=== PATIENT | male | born 1950 ===

== ENCOUNTER 2017-02-04 14:46 | Emergency (ER) | payer OTHER, MEDICARE ==
[2017-02-04 14:46] VITALS: BMI 29.4
[2017-02-04 14:58] VITALS: BP 135/76; PULSE 93; RESP 18; TEMP 97.9; O2SAT 99
--- NOTE | 2017-02-04 15:48 | ED PDOC ---
HPI: Headache Time Seen by Provider: 02/04/17 15:05 Chief Complaint (Nursing): Headache Chief Complaint (Provider): Headache History Per: Patient History/Exam Limitations: no limitations Onset/Duration Of Symptoms: Days Current Symptoms Are (Timing): Still Present Severity: Mild Quality: Pressure, "Pain" Preceeding Symptoms: None Additional Complaint(s): Patient is a 66 year old male with a history of a stroke 10 days ago, started on blood thinner, presents to ED for 5-6 days of mild pressure like headache and dizziness that began today. Patient denies vision changes, extremity numbness or weakness. States his eyes " feel funny" but denies pain. Patient denies chest pain, nausea, vomiting, neck pain or palpations. PMD: : appointment scheduled for tomorrow Neurology: Dr. Chávez NIHSS Stroke Scale - Date/Time Evaluation Performed Date Performed: 02/04/17 Time Performed: 15:20 When Was NIHSS Performed: Baseline - How Severe is the Stroke Level of Consciousness: 0=Alert LOC to Questions: 0=Both comments correct LOC to commands: 0=Obeys both correctly Best Gaze: 0=Normal Visual: 0=No visual loss Facial: 0=Normal Motor Arm - Left: 0=No drift Motor Arm - Right: 0=No drift Motor Leg - Left: 0=No drift Motor Leg - Right: 0=No drift Limb Ataxia: 0=Absent Sensory: 0=Normal Best Language: 0=No aphasia Dysarthia: 0=Normal articulation Extinction & Inattention (Neglect): 0=Normal, no object Score: 0 Past Medical History Reviewed: Historical Data, Nursing Documentation, Vital Signs Vital Signs: Last Vital Signs Temp 97.9 F 02/04/17 14:55 Pulse 93 H 02/04/17 14:55 Resp 18 02/04/17 14:55 BP 135/76 02/04/17 14:55 Pulse Ox 99 02/04/17 14:55 - Medical History PMH: Arthritis (per old chart, pt denies), Diabetes, HTN, Hypercholesterolemia, TIA - Surgical History Surgical History: Denies: Endoscopy Other surgeries: Knee surgery - Family History Family History: States: Unknown Family Hx - Living Arrangements Living Arrangements: With Family - Immunization History Hx Tetanus Toxoid Vaccination: No Hx Influenza Vaccination: No Hx Pneumococcal Vaccination: No - Home Medications Home Medications: Ambulatory Orders Medication Instructions Recorded Ergocalciferol (Vitamin D2) 50,000 unit PO QWK 01/23/17 [Vitamin D2] Naproxen [Naprosyn Tab] 1 tab PO BID 01/23/17 Clopidogrel [Plavix] 75 mg PO DAILY #30 tab 01/24/17 Empagliflozin/Linagliptin 1 tab PO DAILY #30 tablet 01/24/17 [Glyxambi 10 mg-5 mg Tablet] Finasteride [Proscar] 5 mg PO DAILY #30 tab 01/24/17 Losartan/Hydrochlorothiazide 1 tab PO DAILY #30 tablet 01/24/17 [Losartan-Hctz 50-12.5 mg Tab] Tamsulosin [Flomax] 0.4 mg PO DAILY #30 cap 01/24/17 metFORMIN [glucOPHAGE] 500 mg PO DAILY #30 tab 01/24/17 - Allergies Allergies/Adverse Reactions: Allergies Allergy/AdvReac Type Severity Reaction Status Date / Time No Known Allergies Allergy Verified 04/14/16 20:01 Review of Systems ROS Statement: Except As Marked, All Systems Reviewed And Found Negative Constitutional: Negative for: Fever, Chills, Weakness Eyes: Negative for: Vision Change Cardiovascular: Negative for: Chest Pain, Palpitations Respiratory: Negative for: Cough, Shortness of Breath Gastrointestinal: Negative for: Nausea, Vomiting, Abdominal Pain Musculoskeletal: Negative for: Neck Pain, Back Pain Skin: Negative for: Rash Neurological: Positive for: Headache, Dizziness. Negative for: Weakness, Numbness Physical Exam - Reviewed Nursing Documentation Reviewed: Yes Vital Signs Reviewed: Yes - Physical Exam Appears: Positive for: Non-toxic, No Acute Distress Skin: Positive for: Normal Color, Warm Eye Exam: Positive for: Normal appearance, EOMI, PERRL. Negative for: Nystagmus Neck: Positive for: Normal, Painless ROM, Supple Cardiovascular/Chest: Positive for: Regular Rate, Rhythm. Negative for: Murmur Respiratory: Positive for: Normal Breath Sounds. Negative for: Respiratory Distress Gastrointestinal/Abdominal: Positive for: Normal Exam Back: Positive for: Normal Inspection Extremity: Positive for: Normal ROM. 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 Negative for: Motor/Sensory Deficits, Aphasia, Facial Droop - Laboratory Results Result Diagrams: 02/04/17 16:15 03/23/17 16:15 - ECG O2 Sat by Pulse Oximetry: 99 (RA) Pulse Ox Interpretation: Normal Medical Decision Making Medical Decision Making: Time: 1530 Initial impression: Headache with dizziness r/o CVA Initial plan: -- CT-head -- EKG -- CMP -- Troponin -- CBC -- CXR -- Urine culture -- U/A cxr no infiltrate labs reviewed slight elevation in wbc 16:53 CT head FINDINGS: HEMORRHAGE: No intracranial hemorrhage. BRAIN: No mass effect or edema. No atrophy or chronic microvascular ischemic changes. VENTRICLES: Unremarkable. No hydrocephalus. CALVARIUM: Unremarkable. PARANASAL SINUSES: Unremarkable as visualized. No significant inflammatory changes. MASTOID AIR CELLS: Unremarkable as visualized. No inflammatory changes. OTHER FINDINGS: None. IMPRESSION: No intracranial mass, hemorrhage or evidence of acute infarct. Dr. Chávez from neurology consulted and discussed results and recommends aggrenox. no new focal neurological finding on exam, no tpa needed. pt is refusing MRI as states his symptoms have resolved now. Dr. Rubio accepted pt. Dr. Chávez saw pt at bedside and recommended discharge and outpt follow up Scribe Attestation: Documented by Robyn Cook acting as a scribe for Ariel Calix MD MD Scribe Attestation: All medical record entries made by the Scribe were at my direction and personally dictated by me. I have reviewed the chart and agree that the record accurately reflects my personal performance of the history, physical exam, medical decision making, and the department course for this patient. I have also personally directed, reviewed, and agree with the discharge instructions and disposition. Disposition - Clinical Impression Clinical Impression: Headache - Patient ED Disposition Is Patient to be Admitted: No Counseled Patient/Family Regarding: Studies Performed, Diagnosis, Need For Followup - Disposition Disposition: Routine/Home Disposition Time: 17:45 Condition: GOOD rTPA Inclusion/Exclusion - Refusal of Treatment Patient Refused Treatment: No - Inclusion Criteria for Altepase Patient is 18 years or Older: Yes Clinical DX Ischemic Stroke Cause Neurological Deficit: No Time of Onset Established Less Than 270 Mins Before TX Begin: No Risk/Benefit Discussed With Patient/Family Member Present: No - Exclusion Criteria for Altepase Uncontrolled Hypertension at Time of TX (SBP>185 or DBP>110): No Active Internal Bleeding: No Known Bleeding Diathesis: No Evidence of an Intracranial Hemorrhage: No Evidence Major Acute Infarct w/ Signs Greater Than 1/3 MCA: No Suspicion of Subarachnoid Bleed on PreTX Eval(CT: neg bleed): No - Warning to TPA With Conditions Following Conditions Weighed Against Anticipated Benefit: No
--- NOTE | 2017-02-04 16:01 | RAD ---
HISTORY: headache COMPARISON: 01/23/2017 FINDINGS: LUNGS: No active pulmonary disease. PLEURA: No significant pleural effusion identified, no pneumothorax apparent. CARDIOVASCULAR: Normal. OSSEOUS STRUCTURES: No significant abnormalities. VISUALIZED UPPER ABDOMEN: Normal. OTHER FINDINGS: None. IMPRESSION: No active disease.
[2017-02-04 16:33] LABS: BASO # 0.1 K/uL (0.0-0.2); BASO % 0.5 % (0.0-2.0); EOS # 0.2 K/uL (0.0-0.7); EOS % 1.6 % (0.0-4.0); HEMATOCRIT 39.9 % (35.0-51.0); LYMPH # 1.6 K/uL (1.0-4.3); LYMPH % 14.7 % (20.0-40.0); MEAN CELL VOLUME 90.5 fl (80.0-94.0); MEAN CORPUSCULAR HEMOGLOBIN 29.9 pg (27.0-31.0); MEAN PLATELET VOLUME 10.8 fl (7.2-11.7); MONO # 0.9 K/uL (0.0-0.8); NEUT # 8.3 K/uL (1.8-7.0); NEUT % 75.2 % (50.0-75.0); NRBC % 0.1 % (0.0-0.0); RED CELL DISTRIBUTION WIDTH 13.6 % (11.5-14.5); WHITE BLOOD COUNT 11.1 K/uL (4.8-10.8)
[2017-02-04 16:41] LABS: ALB/GLOB RATIO 1.4 (1.0-2.1); ALKALINE PHOSPHATASE 67 U/L (38-126); ALT/SGPT 47 U/L (21-72); AST/SGOT 33 U/L (17-59); BILIRUBIN,TOTAL 0.3 mg/dl (0.2-1.3); BLOOD UREA NITROGEN 23 mg/dl (9-20); CALCIUM 9.4 mg/dL (8.4-10.2); CARBON DIOXIDE 26 mmol/L (22-30); CHLORIDE 101 mmol/L (98-107); GFR AFRICAN-AMERICAN > 60; GLUCOSE,RANDOM 105 mg/dL (75-110); SODIUM 136 mmol/l (132-148)
[2017-02-04 16:42] LABS: POTASSIUM 4.4 MMOL/L (3.6-5.0)
--- NOTE | 2017-02-04 16:55 | CT ---
PROCEDURE: CT HEAD WITHOUT CONTRAST. HISTORY: headache COMPARISON: 01/23/2017 TECHNIQUE: Axial computed tomography images were obtained through the head/brain without intravenous contrast. Radiation dose: Total exam DLP = 847.76 mGy-cm. FINDINGS: HEMORRHAGE: No intracranial hemorrhage. BRAIN: No mass effect or edema. No atrophy or chronic microvascular ischemic changes. VENTRICLES: Unremarkable. No hydrocephalus. CALVARIUM: Unremarkable. PARANASAL SINUSES: Unremarkable as visualized. No significant inflammatory changes. MASTOID AIR CELLS: Unremarkable as visualized. No inflammatory changes. OTHER FINDINGS: None. IMPRESSION: No intracranial mass, hemorrhage or evidence of acute infarct.
[2017-02-04] MEDS ORDERED: Aspirin-Dipyridamole 200-25 mg ER Cap PO ONE (17:30)
[2017-02-04 17:37] LABS: RBC URINE < 1 /hpf (0-3); URINE BILIRUBIN NEGATIVE (NEGATIVE); URINE BLOOD NEGATIVE (NEGATIVE); URINE COLOR YELLOW (YELLOW); URINE GLUCOSE (UA) >=500 mg/dL (Normal); URINE KETONE NEGATIVE (NEGATIVE); URINE LEUKOCYTE ESTERASE NEG Leu/uL (Negative); URINE PROTEIN 30 mg/dL (NEGATIVE); URINE UROBILINOGEN 0.2-1.0 mg/dL (0.2-1.0); WBC URINE < 1 /hpf (0-5)
--- NOTE | 2017-02-04 18:57 | CON ---
DATE: 02/04/2017 REASON FOR CONSULTATION: Dizziness. CHIEF COMPLAINT: The patient came to [facility] because of his lightheadedness. Fr om neurological point of view, I was called in to evaluate him for further management. HISTORY OF PRESENT ILLNESS: The patient is a 66-year-old right-handed male who was seen by me 2 weeks ago with vertigo. He has been worked up for vertebrobasilar insufficiency. Because of hi s risk factors of diabetes, hypertension and dyslipidemia. He had been worked up and he had a small vessel disease as per the MRI findings. He was given statin, LEONIDES inhibitors and Plavix and he was di scharged from the hospital. Yesterday he had some slight lightheadedness. Today he also had some sy mptoms. He does not want to take any medication. His symptoms he grades as 4/10. Right now he does not have any symptoms. He denies any visual or bulbar dysfunction. He denies any focal weakness. PAST MEDICAL HISTORY: Hypertension, diabetes, dyslipidemia. REVIEW OF SYSTEMS: As per H and P. PERSONAL HISTORY: Denies smoking or alcohol use. PHYSICAL EXAMINATION: VITAL SIGNS: Blood pressure 133/76, mean arterial pressure 95, respiratory rate 16, temperature 97.9 with a pulse rate 93, regular. NECK: Supple. No carotid bruit. HEART: Sounds regular. CHEST: Fair air entry. EXTREMITIES: No edema in legs. NEUROLOGIC EXAMINATION: MENTAL STATUS EXAMINATION: He is awake, alert, oriented to person, place, and time. Speech is clear . Naming, repetition, fluency, comprehension all within normal. CRANIAL NERVE EXAMINATION: Visual field intact, pupil reactive to light. Extraocular movements are normal. No nystagmus, no facial sensory deficit, no facial asymmetry. Hearing is normal. Tongue is midline. Good gag. MOTOR: Outstretched hand with eyes closed, no drift noted. Power is symmetric on either side. DEEP TENDON REFLEXES: Biceps, brachioradialis, triceps 1+, both knees are 1+, both ankles are absent . Plantars are downgoing. COORDINATION: Nabjty-[id number] test is intact. GAIT: Normal. Tandem, he was able to do it. CONCLUSION: Upon reviewing his history and neurologic examination the patient has been presenting wi th possible vestibulopathy. However, his symptoms are resolved and the current examination is nonfoc al at present. Considering his recent examination and previous workup, I do not think the patient ne eds further hospitalization to repeat the workup as we did before The patient is advised to drink a lot of water, control the blood pressure. Continue the recommended medication as we advised. The patient agreed with the recommendation. If any symptoms worsen, he will be calling me. The gene ent is scheduled to see me in my office a week from now. Faheem Chávez MD cc: [id number] TT: 02/04/2017 18:57:31 Confirmation # [id number] Dictation # [id number]
--- NOTE | 2017-02-05 08:00 | CARD ---
APPROVED REPORT EKG Measurement Heart [id number] <Conclusion> Normal sinus rhythm Normal ECG
[2017-02-05] MEDS ORDERED: Aspirin-Dipyridamole 200-25 mg ER Cap PO SCH (09:00)
== END 2017-02-04 19:00 | disposition home or self-care (01) ==
LOC: H.ER 14:46 → UNDOADMOB 17:21 → H.ERHOLD 17:21 → INTOOBSV 17:21 → UNDODISOB 19:00
DX: R51 Headache (principal); Z86.73 Personal history of transient ischemic attack (TIA), and cerebral infarction without residual deficits; E11.9 Type 2 diabetes mellitus without complications; I10 Essential (primary) hypertension

== ENCOUNTER 2017-08-11 07:48 | Emergency (ER) | payer OTHER, MEDICARE ==
[2017-08-11 07:48] VITALS: BMI 29.4
[2017-08-11 07:54] VITALS: BP 122/64; PULSE 98; RESP 20; TEMP 97.6; O2SAT 95
--- NOTE | 2017-08-11 08:43 | ED PDOC ---
HPI: CCC, URI, Sore Throat Time Seen by Provider: 08/11/17 08:01 Chief Complaint (Nursing): ENT Problem History Per: Patient (states right ear pain and discharge for 3 days. No fever or chills, no cough.) History/Exam Limitations: no limitations Past Medical History Reviewed: Historical Data, Nursing Documentation, Vital Signs Vital Signs: Last Vital Signs Temp 97.6 F 08/11/17 08:05 Pulse 98 H 08/11/17 08:05 Resp 20 08/11/17 08:05 BP 122/64 08/11/17 08:05 Pulse Ox 95 08/11/17 08:05 - Medical History PMH: Arthritis (per old chart, pt denies), Diabetes, HTN, Hypercholesterolemia, TIA - Surgical History Surgical History: Denies: Endoscopy - Family History Family History: States: Unknown Family Hx - Living Arrangements Living Arrangements: With Family - Social History Current smoker - smoking cessation education provided: No - Immunization History Hx Tetanus Toxoid Vaccination: No Hx Influenza Vaccination: No Hx Pneumococcal Vaccination: No - Home Medications Home Medications: Ambulatory Orders Medication Instructions Recorded Ergocalciferol (Vitamin D2) 50,000 unit PO QWK 01/23/17 [Vitamin D2] Naproxen [Naprosyn Tab] 1 tab PO BID 01/23/17 Clopidogrel [Plavix] 75 mg PO DAILY #30 tab 01/24/17 Empagliflozin/Linagliptin 1 tab PO DAILY #30 tablet 01/24/17 [Glyxambi 10 mg-5 mg Tablet] Finasteride [Proscar] 5 mg PO DAILY #30 tab 01/24/17 Losartan/Hydrochlorothiazide 1 tab PO DAILY #30 tablet 01/24/17 [Losartan-Hctz 50-12.5 mg Tab] Tamsulosin [Flomax] 0.4 mg PO DAILY #30 cap 01/24/17 metFORMIN [glucOPHAGE] 500 mg PO DAILY #30 tab 01/24/17 Ciprofloxacin/Hydrocortisone 5 drop AD QID #1 bottle 08/11/17 [Cipro Hc Otic Suspension] - Allergies Allergies/Adverse Reactions: Allergies Allergy/AdvReac Type Severity Reaction Status Date / Time No Known Allergies Allergy Verified 08/11/17 08:04 Review of Systems ROS Statement: Except As Marked, All Systems Reviewed And Found Negative Constitutional: Negative for: Fever, Chills ENT: Positive for: Ear Pain, Ear Discharge Cardiovascular: Negative for: Chest Pain Respiratory: Negative for: Cough, Shortness of Breath Gastrointestinal: Negative for: Nausea, Vomiting Physical Exam - Reviewed Nursing Documentation Reviewed: Yes Vital Signs Reviewed: Yes - Physical Exam Appears: Positive for: Well, Non-toxic, No Acute Distress Head Exam: Positive for: ATRAUMATIC, NORMAL INSPECTION, NORMOCEPHALIC Skin: Positive for: Normal Color, Warm, DRY Eye Exam: Positive for: Normal appearance, EOMI ENT: Positive for: TM Is/Are (normal but there is tenderness on traction of the tragus and helix. EAC mildly indurated.) Neck: Positive for: Normal, Painless ROM Cardiovascular/Chest: Positive for: Regular Rate, Rhythm Respiratory: Positive for: CNT, Normal Breath Sounds Gastrointestinal/Abdominal: Positive for: Normal Exam, Bowel Sounds, Soft Back: Positive for: Normal Inspection Extremity: Positive for: Normal ROM Neurologic/Psych: Positive for: Alert, Oriented - ECG O2 Sat by Pulse Oximetry: 95 Disposition - Clinical Impression Clinical Impression: Right otitis externa - Patient ED Disposition Is Patient to be Admitted: No Doctor Will See Patient In The: Office Counseled Patient/Family Regarding: Diagnosis, Need For Followup, Rx Given - Disposition Referrals: Srikanth Chavez MD [Family Provider] - Disposition: Routine/Home Disposition Time: 08:15 Condition: STABLE Prescriptions: Ciprofloxacin/Hydrocortisone [Cipro Hc Otic Suspension] 5 drop AD QID #1 bottle Instructions: Otitis Externa (ED)
== END 2017-08-11 08:54 | disposition home or self-care (01) ==
LOC: H.ER 07:48
DX: H60.91 Unspecified otitis externa, right ear (principal); E11.9 Type 2 diabetes mellitus without complications; E78.00 Pure hypercholesterolemia, unspecified; I10 Essential (primary) hypertension; Z79.84 Long term (current) use of oral hypoglycemic drugs; Z86.73 Personal history of transient ischemic attack (TIA), and cerebral infarction without residual deficits